=== PATIENT | female | born 1990 | race Caucasian/White ===

== ENCOUNTER 2018-08-14 14:42 | Emergency (ER) | payer MEDICAID ==
[~2018-08-14] VITALS: Ht 162.6 cm; Wt 97.1 kg
[2018-08-14 14:53] VITALS: Ht 162.6 cm; Wt 97.1 kg
[2018-08-14 15:55] LABS: CALCIUM 9.5 mg/dL (8.5-10.1); CARBON DIOXIDE 27.9 mmol/L (21-32); CHLORIDE SERUM 103 mmol/L (98-107); CREATININE SERUM 0.9 mg/dL (0.6-1.0); GFR1 > 60 mL/min; GLUCOSE SERUM 96 mg/dL (74-106); POTASSIUM SERUM 3.7 mmol/L (3.5-5.1); SODIUM SERUM 140 mmol/L (136-145)
[2018-08-14 15:57] LABS: BASOPHIL % 1.1 % (0-2); PLATELET COUNT 276 x10^3mcL (130-400)
[2018-08-14 15:59] LABS: ALBUMIN 3.7 g/dL (3.4-5.0); ALKALINE PHOSPHATASE 75 U/L (46-116); ALT/SGPT 26 U/L (14-59); AST/SGOT 10 U/L (15-37); BILIRUBIN TOTAL 0.2 mg/dL (0.20-1.00); TOTAL PROTEIN, SERUM 7.7 g/dL (6.4-8.2)
[2018-08-14 16:02] LABS: RED CELL DISTRIBUTION WIDTH 14.7 % (11.5-14.5)
[2018-08-14 16:04] VITALS: BP 120/73
== END 2018-08-14 17:21 | disposition home or self-care (01) ==
LOC: ED 14:42
PROVIDERS: Emergency Medicine
DX: R11.0 Nausea (principal); G47.00 Insomnia, unspecified; F32.9 Major depressive disorder, single episode, unspecified
CPT/HCPCS: 36415; G0480

== ENCOUNTER 2018-08-15 14:28 | Emergency (ER) | payer MEDICAID ==
[~2018-08-15] VITALS: Ht 162.6 cm; Wt 97.1 kg
[2018-08-15 14:33] VITALS: Ht 162.6 cm; Wt 97.1 kg
[2018-08-15 15:25] LABS: microscopic required? YES; urine erythrocyte TRACE (NEGATIVE)
[2018-08-15 15:47] LABS: BASOPHIL % 0.1 % (0-2); PLATELET COUNT 283 x10^3mcL (130-400); RED CELL DISTRIBUTION WIDTH 15.2 % (11.5-14.5)
[2018-08-15 15:48] LABS: CALCIUM 9.6 mg/dL (8.5-10.1); CARBON DIOXIDE 30.4 mmol/L (21-32); CHLORIDE SERUM 102 mmol/L (98-107); CREATININE SERUM 0.8 mg/dL (0.6-1.0); GFR1 > 60 mL/min; GLUCOSE SERUM 82 mg/dL (74-106); POTASSIUM SERUM 3.6 mmol/L (3.5-5.1); SODIUM SERUM 139 mmol/L (136-145)
[2018-08-15 15:52] LABS: ALKALINE PHOSPHATASE 84 U/L (46-116); ALT/SGPT 30 U/L (14-59); AST/SGOT 13 U/L (15-37); BILIRUBIN TOTAL 0.3 mg/dL (0.20-1.00); LIPASE 138 IU/L (73-393); TOTAL PROTEIN, SERUM 8.3 g/dL (6.4-8.2)
[2018-08-15 18:48] VITALS: BP 123/93
== END 2018-08-15 20:13 | disposition home or self-care (01) ==
LOC: ED 14:28
PROVIDERS: Emergency Medicine
DX: N83.202 Unspecified ovarian cyst, left side (principal); R06.00 Dyspnea, unspecified; E11.9 Type 2 diabetes mellitus without complications; F32.9 Major depressive disorder, single episode, unspecified; G47.00 Insomnia, unspecified
CPT/HCPCS: 36415; Q0092

== ENCOUNTER 2018-08-28 01:49 | Inpatient (IN) | payer MEDICAID ==
[~2018-08-28] VITALS: Ht 162.6 cm; Wt 96.4 kg
[2018-08-28 01:53] VITALS: Ht 162.6 cm; Wt 96.4 kg
[2018-08-28 03:33] LABS: CALCIUM 9.2 mg/dL (8.5-10.1); CARBON DIOXIDE 24.4 mmol/L (21-32); CHLORIDE SERUM 105 mmol/L (98-107); CREATININE SERUM 0.8 mg/dL (0.6-1.0); GFR1 > 60 mL/min; GLUCOSE SERUM 103 mg/dL (74-106); POTASSIUM SERUM 3.6 mmol/L (3.5-5.1); SODIUM SERUM 140 mmol/L (136-145)
[2018-08-28 03:42] LABS: ALBUMIN 3.8 g/dL (3.4-5.0); ALKALINE PHOSPHATASE 79 U/L (46-116); ALT/SGPT 24 U/L (14-59); AST/SGOT 7 U/L (15-37); BILIRUBIN TOTAL 0.44 mg/dL (0.20-1.00); TOTAL PROTEIN, SERUM 7.6 g/dL (6.4-8.2)
[2018-08-28 03:43] LABS: BASOPHIL % 0.1 % (0-2); PLATELET COUNT 332 x10^3mcL (130-400)
[2018-08-28 03:49] LABS: RED CELL DISTRIBUTION WIDTH 14.8 % (11.5-14.5)
[2018-08-28 04:44] LABS: AMPHETAMINE QUAL UR NONE DETECTED (See below)
[2018-08-28 04:50] LABS: UA SPECIFIC GRAVITY >=1.030 (1.005-1.035); microscopic required? YES
[2018-08-28 04:51] LABS: urine erythrocyte 3+ (NEGATIVE)
[2018-08-29 02:35] VITALS: BP 108/59
[2018-08-29 05:44] VITALS: BP 105/71
[2018-08-29 06:54] LABS: BASOPHIL % 0.3 % (0-2); PLATELET COUNT 307 x10^3mcL (130-400)
[2018-08-29 07:04] LABS: RED CELL DISTRIBUTION WIDTH 14.9 % (11.5-14.5)
[2018-08-29 09:30] VITALS: BP 103/56
[2018-08-29 17:09] VITALS: BP 101/62
[2018-08-29 19:48] VITALS: BP 96/59
[2018-08-30 06:02] VITALS: BP 97/51
[2018-08-30 07:26] LABS: CALCIUM 9.1 mg/dL (8.5-10.1); CARBON DIOXIDE 25.9 mmol/L (21-32); CHLORIDE SERUM 104 mmol/L (98-107); CREATININE SERUM 0.8 mg/dL (0.6-1.0); GFR1 > 60 mL/min; GLUCOSE SERUM 87 mg/dL (74-106); MAGNESIUM 1.9 mg/dL (1.8-2.4); PHOSPHOROUS 3.7 mg/dL (2.5-4.9); POTASSIUM SERUM 3.9 mmol/L (3.5-5.1); SODIUM SERUM 138 mmol/L (136-145)
[2018-08-30 08:08] LABS: BASOPHIL % 0.3 % (0-2); PLATELET COUNT 299 x10^3mcL (130-400)
[2018-08-30 08:12] LABS: RED CELL DISTRIBUTION WIDTH 14.9 % (11.5-14.5)
[2018-08-30 10:15] VITALS: BP 107/62
[2018-08-30 18:05] VITALS: BP 116/65
[2018-08-31 09:22] VITALS: BP 88/53
[2018-08-31 13:34] VITALS: BP 98/62
[2018-08-31 19:18] VITALS: BP 108/65
[2018-08-31 19:42] VITALS: BP 104/65
[2018-09-01 06:59] VITALS: BP 103/69
[2018-09-01 09:20] VITALS: BP 104/61
[2018-09-01 16:36] VITALS: BP 104/61
[2018-09-01] MEDS ORDERED: ABILIFY5 M1 PO (17:13)
== END 2018-09-01 18:13 | disposition home or self-care (01) | DRG 384 ==
LOC: ED 01:49 → MU 08-29 00:38
PROVIDERS: Specialist; ADMIT Internal Medicine
DX: S00.83XA Contusion of other part of head, initial encounter (principal); N17.0 Acute kidney failure with tubular necrosis; S00.211A Abrasion of right eyelid and periocular area, initial encounter; E11.9 Type 2 diabetes mellitus without complications; S80.212A Abrasion, left knee, initial encounter; S60.512A Abrasion of left hand, initial encounter; S60.511A Abrasion of right hand, initial encounter; S40.212A Abrasion of left shoulder, initial encounter; F41.9 Anxiety disorder, unspecified; F31.9 Bipolar disorder, unspecified; Y31.XXXA Falling, lying or running before or into moving object, undetermined intent, initial encounter; Y93.89 Activity, other specified; Y92.414 Local residential or business street as the place of occurrence of the external cause; N92.0 Excessive and frequent menstruation with regular cycle; F15.21 Other stimulant dependence, in remission; F12.21 Cannabis dependence, in remission; Z68.36 Body mass index [BMI] 36.0-36.9, adult; Z91.19 Patient's noncompliance with other medical treatment and regimen
CPT/HCPCS: G0480; J7030